=== PATIENT | female | born 1960 | race African-American/Black ===

== ENCOUNTER 2019-02-11 09:18 | Inpatient (IN) | payer MEDICARE, MEDICAID ==
[~2019-02-11] VITALS: Ht 163.8 cm; Wt 110.2 kg
[2019-02-11] MEDS ORDERED: ONDANSETRON HCL 4MG/2ML INJ IV ONE (10:15)
[2019-02-11] MEDS ORDERED: MORPHINE SULFATE 4 MG/ML CPJ (NOT FOR IM USE) IV ONE ×2 (10:15→14:15)
[2019-02-11] MEDS ORDERED: SODIUM CHLORIDE 0.9% 1,000 ML IV ONE (10:15)
[2019-02-11 10:49] LABS: BASOPHILS % 0.2 % (0.0-2.0); EOSINOPHILS % 2.2 % (0.0-5.0); HEMATOCRIT. 34.8 % (36.0-48.0); HEMOGLOBIN. 11.7 g/dL (12.0-16.0); LYMPHOCYTES % 19.1 % (20.0-50.0); MEAN CORPUSCULAR HEMOGLOBIN 28.4 pg (28.0-32.0); MEAN CORPUSCULAR VOLUME 84.7 fL (81.0-99.0); MEAN PLATELET VOLUME 8.6 fl (7.4-10.4); MONOCYTES % 6.1 % (2.0-8.0); NEUTROPHILS % 72.4 % (40.0-76.0); PLATELET 210 x1000/uL (130-400); RED BLOOD CELL COUNT 4.11 mill/uL (4.2-5.4); RED CELL DISTRIBUTION WIDTH 17.9 % (11.6-14.6)
[2019-02-11 10:53] LABS: CHLORIDE 103 mEq/L (98-107)
[2019-02-11 10:55] LABS: INR 1.1; PROTHROMBIN TIME 10.8 sec (9.6-11.0)
[2019-02-11] MEDS ORDERED: CEFUROXIME SODIUM 750 MG in DEXTROSE 5% WATER 50 ML IV SCH (13:15)
[2019-02-11 13:16] LABS: CLARITY URINE CLEAR (CLEAR); COLOR URINE YELLOW (YELLOW); KETONES URINE NEGATIVE (NEGATIVE); LEUKOCYTE ESTERASE URINE NEGATIVE (NEGATIVE); NITRITE URINE NEGATIVE (NEGATIVE); OCCULT BLOOD URINE NEGATIVE (NEGATIVE); PROTEIN URINE NEGATIVE (NEGATIVE)
[2019-02-11] MEDS ORDERED: LEVOFLOXACIN 750MG PREMIX 150 ML IV ONE (13:45)
[2019-02-11] MEDS ORDERED: METRONIDAZOLE 500 MG PREMIX 100 ML IV ONE (13:45)
[2019-02-11 16:45] VITALS: BP 105/51
[2019-02-11] MEDS ORDERED: ACETAMINOPHEN 325MG TABLET PO PRN (19:00)
[2019-02-11] MEDS ORDERED: GUAIFENESIN 200MG/10ML SUGAR FREE UDC PO PRN (19:00)
[2019-02-11] MEDS ORDERED: MAGNESIUM/ALUMINUM HYDROXIDE/SIMETHICONE 30ML UDC PO PRN (19:00)
[2019-02-11] MEDS ORDERED: ONDANSETRON HCL 4MG/2ML INJ IV PRN (19:00)
[2019-02-11] MEDS ORDERED: ACETAMINOPHEN 650MG/20.3ML UDC GT PRN (19:00)
[2019-02-11] MEDS ORDERED: HYDROCODONE/ACETAMINOPHEN 5/325MG TABLET PO PRN (19:00)
[2019-02-11] MEDS ORDERED: NA PHOS,M-B/NA PHOS,DI-BA ENEMA 118ML PR PRN (19:00)
[2019-02-11] MEDS ORDERED: DOCUSATE SODIUM 100MG CAPSULE PO PRN (19:00)
[2019-02-11] MEDS ORDERED: DIPHENHYDRAMINE 50MG/ML VIAL IV PRN (19:00)
[2019-02-11] MEDS ORDERED: POTASSIUM CHLORIDE 20MEQ TABLET SR PO NR (19:00)
[2019-02-11] MEDS ORDERED: LORAZEPAM 2MG/ML CPJ IV PRN (19:00)
[2019-02-11] MEDS ORDERED: ACETAMINOPHEN 650MG SUPP PR PRN (19:00)
[2019-02-11] MEDS ORDERED: ENOXAPARIN 40MG/0.4ML SYR SUBCUT SCH (19:00)
[2019-02-11] MEDS ORDERED: GABA-290 PO (19:36)
[2019-02-11] MEDS ORDERED: LEVO175T7 MT (19:37)
[2019-02-11 20:00] VITALS: BP 134/79
[2019-02-11] MEDS: ENOXAPARIN 30MG/0.3ML SYR SUBCUT SCH (20:59)
[2019-02-11] MEDS: LEVOFLOXACIN 500MG PREMIX 100 ML IV SCH (21:00)
[2019-02-11] MEDS ORDERED: MORPHINE SULFATE 2 MG/ML CPJ (NOT FOR IM USE) IV PRN (21:00)
[2019-02-11] MEDS: SODIUM CHLORIDE 0.45% 1,000 ML IV SCH (21:26)
[2019-02-11] MEDS: FAMOTIDINE 20MG/2ML VIAL IV SCH (23:18)
[2019-02-11] MEDS: METRONIDAZOLE 500 MG PREMIX 100 ML IV SCH (23:18)
[2019-02-11] MEDS: SODIUM CHLORIDE 0.9% INJ 3ML FLUSH IVF SCH (23:33)
[2019-02-12] VITALS: BP 121/63
[2019-02-12 04:00] VITALS: BP 98/52
[2019-02-12] MEDS: METRONIDAZOLE 500 MG PREMIX 100 ML IV SCH ×3 (05:35→22:28)
[2019-02-12] MEDS: SODIUM CHLORIDE 0.9% INJ 3ML FLUSH IVF SCH ×3 (05:35→22:28)
[2019-02-12 08:00] VITALS: BP 115/56
[2019-02-12 08:01] LABS: BASOPHILS % 0.4 % (0.0-2.0); EOSINOPHILS % 2.2 % (0.0-5.0); HEMATOCRIT. 31.2 % (36.0-48.0); HEMOGLOBIN. 10.4 g/dL (12.0-16.0); LYMPHOCYTES % 18.3 % (20.0-50.0); MEAN CORPUSCULAR HEMOGLOBIN 28.5 pg (28.0-32.0); MEAN CORPUSCULAR VOLUME 85.8 fL (81.0-99.0); MEAN PLATELET VOLUME 8.4 fl (7.4-10.4); MONOCYTES % 7.7 % (2.0-8.0); NEUTROPHILS % 71.4 % (40.0-76.0); PLATELET 197 x1000/uL (130-400); RED BLOOD CELL COUNT 3.63 mill/uL (4.2-5.4); RED CELL DISTRIBUTION WIDTH 17.8 % (11.6-14.6)
[2019-02-12 08:50] LABS: CHLORIDE 106 mEq/L (98-107)
[2019-02-12 09:05] LABS: LDL CHOLESTEROL 84 mg/dL (5-100)
[2019-02-12 09:07] LABS: HDL CHOLESTEROL 49 mg/dL (40-59)
[2019-02-12] MEDS: ENOXAPARIN 30MG/0.3ML SYR SUBCUT SCH ×2 (09:28→21:22)
[2019-02-12] MEDS: FAMOTIDINE 20MG/2ML VIAL IV SCH ×2 (09:29→21:22)
[2019-02-12] MEDS: SODIUM CHLORIDE 0.45% 1,000 ML IV SCH (09:29)
[2019-02-12 12:00] VITALS: BP 123/61
[2019-02-12 16:00] VITALS: BP 127/75
[2019-02-12 20:00] VITALS: BP 139/73
[2019-02-12 20:00] LABS: *AMPHETAMINES SCREEN URINE NEGATIVE (NEGATIVE); *BARBITURATES SCREEN URINE NEGATIVE (NEGATIVE); *BENZODIAZEPINES SCREEN URINE NEGATIVE (NEGATIVE); *COCAINE SCREEN URINE NEGATIVE (NEGATIVE); METHADONE URINE SCREEN NEGATIVE (NEGATIVE); OPIATES URINE SCREEN PRESUMTIVE POSITIVE (NEGATIVE); PHENCYCLIDINE URINE SCREEN NEGATIVE (NEGATIVE)
[2019-02-12 20:01] LABS: CANNABINOID URINE SCREEN NEGATIVE (NEGATIVE)
[2019-02-12] MEDS: LEVOFLOXACIN 500MG PREMIX 100 ML IV SCH (21:22)
[2019-02-13] VITALS: BP 112/67
[2019-02-13 04:00] VITALS: BP 129/68
[2019-02-13] MEDS: SODIUM CHLORIDE 0.9% INJ 3ML FLUSH IVF SCH (06:32)
[2019-02-13] MEDS: METRONIDAZOLE 500 MG PREMIX 100 ML IV SCH (06:32)
[2019-02-13 08:00] VITALS: BP 110/70
[2019-02-13] MEDS: ENOXAPARIN 30MG/0.3ML SYR SUBCUT SCH (09:11)
[2019-02-13] MEDS: FAMOTIDINE 20MG/2ML VIAL IV SCH (09:11)
[2019-02-13 11:07] VITALS: BP 110/70
[2019-02-13 12:00] VITALS: BP 104/68
== END 2019-02-13 13:09 | disposition home or self-care (01) | DRG 445 ==
LOC: ER 09:18 → 6EST 13:44 → EDBEDREQ 14:12 → EDBEDREQTM 14:12 → ENRESERV 15:24
PROVIDERS: ADMIT Family Medicine; ATTEND Family Medicine
DX: K80.10 Calculus of gallbladder with chronic cholecystitis without obstruction (principal); Z68.41 Body mass index [BMI] 40.0-44.9, adult; E03.9 Hypothyroidism, unspecified; I10 Essential (primary) hypertension; Z96.652 Presence of left artificial knee joint; K76.0 Fatty (change of) liver, not elsewhere classified; E66.9 Obesity, unspecified; M79.7 Fibromyalgia
CPT/HCPCS: 36415; 76705; 80061; 80305; 81003; 99285; J0697; J1650; J1956; J2270; J2405; J3490; J7030; J7060

== ENCOUNTER 2019-03-15 11:28 | Emergency (ER) | payer MEDICARE, MEDICAID ==
[~2019-03-15] VITALS: Ht 162.6 cm; Wt 111.0 kg
[~2019-03-15 11:28] MED LIST: GABA-290 PO; LEVO175T7 MT
[2019-03-15] MEDS ORDERED: ACETAMINOPHEN WITH CODEINE 300/30MG TABLET PO ONE (13:00)
[2019-03-15 14:37] VITALS: BP 158/68
== END 2019-03-15 14:38 | disposition home or self-care (01) ==
LOC: ER 11:28
DX: M25.562 Pain in left knee (principal); M79.7 Fibromyalgia; I10 Essential (primary) hypertension; E03.9 Hypothyroidism, unspecified; Z96.652 Presence of left artificial knee joint
CPT/HCPCS: 73560; 99283